=== PATIENT | male | born 1955 | race Hispanic/Latino ===

== ENCOUNTER 2019-05-30 08:49 | Emergency (ER) | payer BC, OTHER ==
[2019-05-30 10:03] LABS: Urine Blood 1+ (NEG); Urine Glucose TRACE (NEG); Urine Protein 1+ (NEG); Urine Specific Gravity 1.025 (1.005-1.030)
[2019-05-30 10:13] LABS: Urine Bacteria <20 /HPF (NONE SEEN); Urine Culture Reflex Order REFLEXED; Urine Mucus 2+ /HPF (NONE SEEN); Urine RBC <5 /HPF (NONE SEEN); Urine Urothelial Cells <5 /HPF (NONE SEEN)
--- NOTE | 2019-05-30 10:21 | RAD REPORT ---
EXAM DESCRIPTION: CT - Stone Protocol - 05/30/2019 9:45 am CLINICAL HISTORY: pain with urination COMPARISON: No comparisons TECHNIQUE: Axial 5 mm thick images were obtained without oral or IV contrast. The [id number] span s the entirety of the system including uppermost abdomen and lung bases. All CT scans are performed using dose optimization technique as appropriate and may include automated exposure control or mA/KV adjustment according to patient size. FINDINGS: No hydronephrosis is present and no obstructing ureteral calculi. Small sandlike stones co uld be occult. Minimal stranding seen in the perinephric fat. In 19 millimeter round low-density mass posterior mid right kidney is most likely a cyst but is not fully characterized. Partially filled ur inary bladder shows wall thickening and stranding in the adjacent fat. Prostate gland is prominent an d projects into the bladder base. There is a mild congested or edematous appearance to the prostate g land and seminal vesicles. No significant adrenal finding. Liver shows a fatty attenuation pattern. No focal liver lesion on noncontrast imaging. Spleen and andujar creas show no suspicious findings. Gallbladder is contracted. Stones can be occult. No biliary tree d ilatation. No suspicious bowel findings. No hernia, mass or bulky lymphadenopathy noted. No free air, free fluid or inflammatory stranding. No significant bony abnormality. IMPRESSION: No hydronephrosis and no obstructing calculus seen. Bladder shows cystitis findings and there is a questionable prostatitis pattern. Isodense masses and pyelonephritis are not excluded on stone protocol technique. A 19 millimeter low-density mass posterior mid right kidney is probably a cyst but not fully characte rized. Fatty infiltration of the liver. Gallbladder is tightly contracted.
[2019-05-30 11:48] LABS: Hematocrit 40.1 % (39.6-49.0); Lymphocytes % 23.3 % (15.3-44.8); MPV 8.1 fL (7.6-11.3); RBC Red Blood Cell Count 4.49 M/uL (4.33-5.43)
[2019-05-30 11:55] LABS: BUN Blood Urea Nitrogen 14 mg/dL (7-18); Bicarbonate 25 mmol/L (21-32); Glucose Level 111 mg/dL (74-106); Sodium Level 140 mmol/L (136-145)
--- NOTE | 2019-05-30 13:59 | ER ---
Nurse's Notes [facility] Name: Emile Rogers Age: 64 yrs Sex: Male : 1955 Arrival Date: 05/30/2019 Time: 08:53 Bed 24 Private MD: Diagnosis: Acute prostatitis;Acute cystitis Presentation: 05/29 09:11 Chief complaint: Patient states: Burning and pain to right flank with urination, jl7 started Monday, went to clinic and they gave Benzonatate and Doxycycline, "It's not working.". Coronavirus screen: The patient has NOT traveled to a country currently being monitored by the [facility] within the last 14 days. Proceed with normal triage procedures. Ebola Screen: No symptoms or risks identified at this time. Initial Sepsis Screen: Does the patient meet any 2 criteria? No. Patient's initial sepsis screen is negative. Does the patient have a suspected source of infection? No. Patient's initial sepsis screen is negative. Risk Assessment: Do you want to hurt yourself or someone else? Patient reports no desire to harm self or others. Onset of symptoms was May 26, 2019. 09:11 Method Of Arrival: Ambulatory [facility] 09:11 Acuity: ASHLY 3 jl7 Triage Assessment: 09:14 General: Appears in no apparent distress. uncomfortable, Behavior is calm, cooperative, jl7 appropriate for age. Pain: Complains of pain in Right flank and groin Pain currently is 9 out of 10 on a pain scale. Neuro: Level of Consciousness is awake, alert, obeys commands. Cardiovascular: Patient's skin is warm and dry. Respiratory: Airway is patent Respiratory effort is even, unlabored, Respiratory pattern is regular, symmetrical. : Reports burning with urination, pain in right flank(s). Derm: Skin is pink, warm \\T\\ dry. Historical: - Allergies: 09:14 No Known Allergies; jl7 - Home Meds: 09:14 None [Active]; jl7 - PMHx: 09:14 None; jl7 - PSHx: 09:14 None; jl7 - Immunization history:: Adult Immunizations not up to date. - Social history:: Smoking status: Patient reports the use of cigarette tobacco products, smokes one-half pack cigarettes per day. Screenin:20 Abuse screen: Denies threats or abuse. Denies injuries from another. Nutritional aj1 screening: No deficits noted. Tuberculosis screening: No symptoms or risk factors identified. 13:17 Fall Risk None identified. aj1 Assessment: 10:20 General: Appears in no apparent distress. uncomfortable, Behavior is calm, cooperative, aj1 appropriate for age. Pain: Complains of pain in back. Neuro: Level of Consciousness is awake, alert, obeys commands, Oriented to person, place, time, situation. Cardiovascular: Patient's skin is warm and dry. Respiratory: Airway is patent Respiratory effort is even, unlabored, Respiratory pattern is regular, symmetrical. GI: No signs and/or symptoms were reported involving the gastrointestinal system. : Reports burning with urination, urinary frequency. EENT: No signs and/or symptoms were reported regarding the EENT system. Derm: No signs and/or symptoms reported regarding the dermatologic system. Skin is pink, warm \\T\\ dry. normal. Musculoskeletal: No signs and/or symptoms reported regarding the musculoskeletal system. Circulation, motion, and sensation intact. 11:20 Reassessment: Patient appears in no apparent distress at this time. No changes from aj1 previously documented assessment. Patient and/or family updated on plan of care and expected duration. Pain level reassessed. Patient is alert, oriented x 3, equal unlabored respirations, skin warm/dry/pink. 12:20 Reassessment: Patient appears in no apparent distress at this time. No changes from aj1 previously documented assessment. Patient and/or family updated on plan of care and expected duration. Pain level reassessed. Patient is alert, oriented x 3, equal unlabored respirations, skin warm/dry/pink. 13:16 Reassessment: Patient appears in no apparent distress at this time. No changes from aj1 previously documented assessment. Patient and/or family updated on plan of care and expected duration. Pain level reassessed. Patient is alert, oriented x 3, equal unlabored respirations, skin warm/dry/pink. Vital Signs: 09:11 BP 159 / 63; Pulse 66; Resp 17 S; Temp 98.3(O); Pulse Ox 98% on R/A; Weight 83.91 kg jl7 (R); Height 5 ft. 4 in. (162.56 cm) (R); Pain 9/10; 11:46 BP 155 / 75; Pulse 52; Resp 18; Pulse Ox 95% on R/A; aj1 12:51 BP 161 / 75; Pulse 61; Resp 18; Pulse Ox 100% on R/A; aj1 09:11 Body Mass Index 31.75 (83.91 kg, 162.56 cm) 7 ED Course: 08:53 Patient arrived in ED. ag5 09:14 Triage completed. jl7 09:14 Arm band placed on right wrist. jl7 09:16 Patient placed in waiting room, Patient notified of wait time. jl7 09:50 CT Stone Protocol In Process Unspecified. EDMS 10:07 Jeffrey Echevarria FNP-C is PHCP. la1 10:07 Derrick Braswell MD is Attending Physician. la1 10:20 Patient has correct armband on for positive identification. Bed in low position. Call aj1 light in reach. Side rails up X 1. 10:20 No provider procedures requiring assistance completed. aj1 10:28 Jammie George, RN is Primary Nurse. aj1 11:35 Initial lab(s) drawn, by me, sent to lab. Inserted saline lock: 20 gauge in right aj1 antecubital area, using aseptic technique. Blood collected. 13:17 IV discontinued, intact, bleeding controlled, No redness/swelling at site. Pressure aj1 dressing applied. Administered Medications: No medications were administered Outcome: 12:49 Discharge ordered by . la1 13:17 Discharged to home ambulatory. aj1 13:17 Condition: good 13:17 Discharge instructions given to patient, Instructed on discharge instructions, follow up and referral plans. medication usage, Demonstrated understanding of instructions, follow-up care, medications, Prescriptions given X 1. 13:18 Patient left the ED. aj1 Signatures: Dispatcher [employer] EDIL Jammie George, RN RN aj1 Jeffrey Echevarria FNP-C FNP-Miguel Mistry RN RN jl7 Giorgio Jeff [facility]
--- NOTE | 2019-05-30 14:01 | EDPHYS ---
Physician Documentation [facility] Name: Emile Rogers Age: 64 yrs Sex: Male : 1955 Arrival Date: 05/30/2019 Time: 08:53 Bed 24 Private MD: ED Physician Derrick Braswell HPI: 05/29 10:19 This 64 yrs old Male presents to ER via Ambulatory with complaints of Pain la1 With Urination. 10:19 The patient presents with urinary symptoms, urinary frequency, small amounts. Onset: la1 The symptoms/episode began/occurred 5 day(s) ago. Modifying factors: The symptoms are alleviated by nothing. Associated signs and symptoms: Pertinent positives: dysuria, hematuria, Pertinent negatives: fever. Severity of symptoms: At their worst the symptoms were moderate. The patient has experienced a previous episode. pt was seen at [place] ER and placed on 10 days of doxycycline but is not getting better after four days of antibiotics. Historical: - Allergies: 09:14 No Known Allergies; jl7 - Home Meds: 09:14 None [Active]; jl7 - PMHx: 09:14 None; jl7 - PSHx: 09:14 None; jl7 - Immunization history:: Adult Immunizations not up to date. - Social history:: Smoking status: Patient reports the use of cigarette tobacco products, smokes one-half pack cigarettes per day. ROS: 10:20 Constitutional: Negative for fever, chills, and weight loss, Eyes: Negative for injury, la1 pain, redness, and discharge, Neck: Negative for injury, pain, and swelling, Cardiovascular: Negative for chest pain, palpitations, and edema, Respiratory: Negative for shortness of breath, cough, wheezing, and pleuritic chest pain, Abdomen/GI: Negative for abdominal pain, nausea, vomiting, diarrhea, and constipation, Back: Negative for injury and pain. 10:20 MS/Extremity: Negative for injury and deformity, Skin: Negative for injury, rash, and discoloration, Neuro: Negative for headache, weakness, numbness, tingling, and seizure. 10:20 : Positive for urinary symptoms, urinary frequency, small amounts, burning with urination, difficulty urinating. Exam: 10:21 Constitutional: This is a well developed, well nourished patient who is awake, alert, la1 and in no acute distress. Head/Face: Normocephalic, atraumatic. Eyes: Pupils equal round and reactive to light, extra-ocular motions intact. ENT: Nares patent. No nasal discharge, no septal abnormalities noted. Cardiovascular: Regular rate and rhythm with a normal S1 and S2. Respiratory: Lungs have equal breath sounds bilaterally, clear to auscultation Abdomen/GI: Soft, non-tender, with normal bowel sounds. No distension Back: No spinal tenderness. No costovertebral tenderness. Full range of motion. Skin: Warm, dry with normal turgor. Normal color with no rashes, no lesions, and no evidence of cellulitis. MS/ Extremity: Pulses equal, no cyanosis. Neuro: Awake and alert, GCS 15, oriented to person, place, time, and situation. Normal gait. Vital Signs: 09:11 BP 159 / 63; Pulse 66; Resp 17 S; Temp 98.3(O); Pulse Ox 98% on R/A; Weight 83.91 kg jl7 (R); Height 5 ft. 4 in. (162.56 cm) (R); Pain 9/10; 11:46 BP 155 / 75; Pulse 52; Resp 18; Pulse Ox 95% on R/A; aj1 12:51 BP 161 / 75; Pulse 61; Resp 18; Pulse Ox 100% on R/A; aj1 09:11 Body Mass Index 31.75 (83.91 kg, 162.56 cm) jl7 MDM: 10:07 Patient medically screened. la1 12:46 Differential diagnosis: nonspecific abdominal pain, UTI, urinary retention, la1 prostatitis, urethritis. Data reviewed: vital signs, nurses notes, lab test result(s), radiologic studies, and as a result, I will discharge patient. Data interpreted: Pulse oximetry: on room air is 95 %. Interpretation: normal. Counseling: I had a detailed discussion with the patient and/or guardian regarding: the historical points, exam findings, and any diagnostic results supporting the discharge/admit diagnosis, lab results, the need for outpatient follow up, a family practitioner, a urologist, to return to the emergency department if symptoms worsen or persist or if there are any questions or concerns that arise at home. Special discussion: Based on the patient's Hx, exam, and Dx evaluation, there is no indication for emergent surgery or inpatient Tx. It is understood by the patient/guardian that if the Sx's persist or worsen they need to return immediately for re-evaluation. ED course: Pt currently on doxycycline for what I assume the provider in [place] believed to be a prostatitis, since I do not believe that the pt prostatitis/cystitis is from an STI based on age and history I will prescribe the pt 14 days of bactrim and have him FU with PCP and urology, pt verbalizes understanding, strict return precautions given. 05/29 09:35 Order name: Urine Dipstick--Ancillary (enter results); Complete Time: 10:07 dm5 05/29 09:35 Order name: Urine Microscopic Only; Complete Time: 10:17 dm5 05/29 09:35 Order name: CT Stone Protocol; Complete Time: 11:52 dm5 05/29 10:15 Order name: Urine Culture EDNJ 05/29 10:17 Order name: CBC with Diff; Complete Time: 12:39 la1 05/29 10:17 Order name: BMP; Complete Time: 12:39 la1 05/29 10:17 Order name: IV; Complete Time: 11:42 la1 Administered Medications: No medications were administered Disposition: 17:20 Co-signature as Attending Physician, Derrick Braswell MD I agree with the assessment and kdr plan of care. Disposition: 05/30/19 12:49 Discharged to Home. Impression: Acute prostatitis, Acute cystitis. - Condition is Stable. - Discharge Instructions: Prostatitis, Urinary Tract Infection, Adult, Prostatitis, Cyab-yv-Kyli. - Prescriptions for Bactrim DS 800- 160 mg Oral Tablet - take 1 tablet by ORAL route every 12 hours for 14 days; 28 tablet. - Work release form, Medication Reconciliation Form, Thank You Letter form. - Follow up: Private Physician; When: 2 - 3 days; Reason: Further diagnostic work-up, Recheck today's complaints, Re-evaluation by your physician. Follow up: Emergency Department; When: As needed; Reason: Fever > 102 F, Worsening of condition. - Problem is new. - Symptoms have improved. Signatures: Dispatcher [facility] Jammie George RN RN aj1 Derrick Braswell MD MD kdr Attema, Lee, CREATIVE INTERN-C CREATIVE INTERN-Cla1 Miguel Alvarado, RN RN jl7 Corrections: (The following items were deleted from the chart) 13:18 12:49 05/30/2019 12:49 Discharged to Home. Impression: Acute prostatitis; Acute aj1 cystitis. Condition is Stable. Forms are Medication Reconciliation Form, Thank You Letter, Antibiotic Education, Prescription Opioid Use. Follow up: Private Physician; When: 2 - 3 days; Reason: Further diagnostic work-up, Recheck today's complaints, Re-evaluation by your physician. Follow up: Emergency Department; When: As needed; Reason: Fever > 102 F, Worsening of condition. Problem is new. Symptoms have improved. la1
[2019-05-30 14:29] VITALS: TEMP 98.3
[2019-05-30 14:33] VITALS: BP 161/75; O2SAT 100
== END 2019-05-30 13:18 | disposition home or self-care (01) ==
LOC: ER 08:49
DX: N30.00 Acute cystitis without hematuria (principal); N41.0 Acute prostatitis; F17.210 Nicotine dependence, cigarettes, uncomplicated
CPT/HCPCS: 36415; 74176; 76377; 80048; 81003; 81015; 85025; 87086; 87088; 99284

== ENCOUNTER 2020-07-08 17:25 | Inpatient (IN) | payer BC ==
--- OUTSIDE RECORDS SUMMARY | 2020-07-08 17:28 | XMS REPORT | Continuity of Care Document ---
:1955 Author Organization [facility] t Address [address] [place] [address] [address] [place] [address] Care Team Providers Name Role Phone Patricia Gore Attending Clinician Problems This patient has no known problems. Allergies, Adverse Reactions, Alerts This patient has no known allergies or adverse reactions. Medications This patient has no known medications. Procedures This patient has no known procedures. Encounters Start End Encounter Admission Attending Care Care Encounter Source Date/Time Date/Time Type Type Clinicians Facility Department ID 2019-05-26 2019-05-26 Emergency Patricia Olivares [facility] [place] [id number] 18:28:14 21:14:00 Anny Pereira [id number] [place] [id number] [place] [id number] Results This patient has no known results.
[2020-07-08 18:28] LABS: Absolute Lymphocytes (CBC) 3.1 K/uL (0.7-4.9); Lymphocytes % 34.6 % (15.3-44.8); RBC Red Blood Cell Count 4.51 M/uL (4.33-5.43)
--- NOTE | 2020-07-08 18:39 | RAD REPORT ---
EXAM DESCRIPTION: CT - Ct Stroke Brain Wo Cont - 07/08/2020 6:25 pm CLINICAL HISTORY: right lower facial weakness x 3 days COMPARISON: No comparisons TECHNIQUE: Axial 5 millimeter thick images of the head were obtained without IV contrast. All CT scans are performed using dose optimization technique as appropriate and may include automated exposure control or mA/KV adjustment according to patient size. FINDINGS: No intracranial hemorrhage, mass, or cerebral edema. No acute cortical based infarction. N o cortical edema or sulcal effacement. No extra-axial fluid collections. Ugarte matter-white matter di fferentiation is preserved.Diminished attenuation is seen in the posterior left basal ganglia and pos terior limb internal capsule. This extends into the deep periventricular white matter posterior left frontal lobe. In a patient with right-sided symptoms, subacute nonhemorrhagic CVA is suspected. Patient has no significant atrophy or chronic ischemic change identifiable. Ventricles are normal. Ar terial calcifications are present. Mastoid air cells are clear. Patchy ethmoid mucosal thickening is present. No globe or orbital conten t abnormality seen. Findings telephoned to doctor Eloisa [id number] hours IMPRESSION: Suspected subacute nonhemorrhagic infarction in the posterior left basal ganglia and pos terior limb internal capsule region. No hemorrhage, mass or other acute intracranial finding.
[2020-07-08 18:44] LABS: BUN Blood Urea Nitrogen 16 mg/dL (7-18); Bicarbonate 26 mmol/L (21-32); Glucose Level 103 mg/dL (74-106); Sodium Level 140 mmol/L (136-145)
[2020-07-08 18:45] LABS: Protime INR 0.97
--- NOTE | 2020-07-08 18:50 | ER ---
Nurse's Notes [facility] Name: Emile Rogers Age: 65 yrs Sex: Male : 1955 Arrival Date: 07/08/2020 Time: 17:39 Bed 20 Private MD: Diagnosis: Cerebral infarction;Slurred speech;Weakness Presentation: 07/08 17:40 Chief complaint: EMS states: patient woke up Monday experiencing slurred speech. ap3 Patient worked Monday, Monday and today. [facility] co-workers noticed a slight slur in speech today, and had [facility] EMS called. Patient denies pain, headache or weakness. Coronavirus screen: Client denies travel out of the [place] in the last 14 days. Ebola Screen: No symptoms or risks identified at this time. Initial Sepsis Screen: Does the patient meet any 2 criteria? No. Patient's initial sepsis screen is negative. Does the patient have a suspected source of infection? No. Patient's initial sepsis screen is negative. Risk Assessment: Do you want to hurt yourself or someone else? Patient reports no desire to harm self or others. Onset of symptoms was July 05, 2020. 17:40 [facility] 17:40 Acuity: ASHLY 3 ap3 Triage Assessment: 17:50 General: Appears in no apparent distress. Behavior is calm, cooperative. Pain: Denies ap3 pain. EENT: Reports numbness in the right side of tongue.. Neuro: Level of Consciousness is awake, alert, obeys commands, Oriented to person, place, time, situation, Computer Numerical Control Machinist are equal bilaterally Moves all extremities. Gait is steady, Speech slightly slurred. . Historical: - Allergies: 17:50 No Known Allergies; ap3 - Home Meds: 17:50 None [Active]; ap3 - PMHx: 17:50 None; ap3 - PSHx: 17:50 None; ap3 - Social history:: Smoking status: Patient reports the use of cigarette tobacco products, approx 5 cigarettes a day. - Family history:: not pertinent. - Hospitalizations: : No recent hospitalization is reported. Screenin:52 Abuse screen: Denies threats or abuse. Nutritional screening: No deficits noted. ap3 Tuberculosis screening: No symptoms or risk factors identified. VAN Screening: Arm Drift: Patient shows no arm weakness. Patient is VAN negative. Fall Risk No fall in past 12 months (0 pts). No secondary diagnosis (0 pts). IV access (20 points). Ambulatory Aid- None/Bed Rest/Nurse Assist (0 pts). Gait- Normal/Bed Rest/Wheelchair (0 pts) Mental Status- Oriented to own ability (0 pts). Total Shay Fall Scale indicates No Risk (0-24 pts). 18:42 Patient has been NPO before screening. The patient is alert, able to follow commands. ap3 The patient exhibits slurred or garbled speech. The patient is not exhibiting difficulty speaking. The patient does not exhibit difficulty understanding words. The patient is able to swallow own secretions with no drooling or need for suction. Patient tolerated one teaspoon of water. No drooling, immediate coughing, gurgling, or clearing of the throat was noted. The patient tolerated 90mL of water. No drooling, immediate coughing, gurgling, or clearing of the throat was noted. The patient passed the bedside swallow screening. Oral medications may be given as ordered. Contact Physician for further diet orders. Assessment: 18:23 General: Appears in no apparent distress. comfortable, Behavior is calm, cooperative, ap3 appropriate for age. Pain: Denies pain. Neuro: Level of Consciousness is awake, alert, obeys commands, Oriented to person, place, time, situation, Computer Numerical Control Machinist are equal bilaterally Moves all extremities. Gait is steady, Speech slightly slurred . Facial droop on right, Facial symmetry: tongue is midline. Cardiovascular: Denies Capillary refill < 3 seconds Patient's skin is warm and dry. Chest pain is denied. Respiratory: Airway is patent Respiratory effort is even, unlabored, Respiratory pattern is regular, symmetrical. GI: No signs and/or symptoms were reported involving the gastrointestinal system. : No signs and/or symptoms were reported regarding the genitourinary system. EENT: Denies difficulty swallowing. Derm: No signs and/or symptoms reported regarding the dermatologic system. Musculoskeletal: No signs and/or symptoms reported regarding the musculoskeletal system. 19:00 Reassessment: Patient and/or family updated on plan of care and expected duration. Pain ea level reassessed. Patient is alert, oriented x 3, equal unlabored respirations, skin warm/dry/pink. Vital Signs: 17:40 BP 201 / 80; Pulse 64; Resp 64; Pulse Ox 97% on R/A; Weight 81.65 kg; Height 5 ft. 5 ap3 in. (165.10 cm); Pain 0/10; 17:50 BP 201 / 80; Pulse 62; Pulse Ox 97% on R/A; Pain 0/10; ap3 18:25 BP 194 / 78; Temp 98.4(O); ap3 19:18 BP 178 / 78; Pulse 57; Pulse Ox 96% on R/A; Pain 0/10; ap3 17:40 Body Mass Index 29.95 (81.65 kg, 165.10 cm) ap3 NIH Stroke Scale Scores: 17:52 NIHSS Score: 1 ap3 ED Course: 17:39 Patient arrived in ED. jd3 17:40 Lesley Rao, RN is Primary Nurse. ap3 17:49 Triage completed. ap3 17:56 Harrison Amin MD is Attending Physician. rn 18:04 Maintain EMS IV. Dressing intact. Site clean \T\ dry. Gauge \T\ site: 20g to the right ap 3 wrist. 18:04 Arm band placed on right wrist. ap3 18:04 Patient has correct armband on for positive identification. Placed in gown. Bed in low ap3 position. Call light in reach. Side rails up X2. Adult w/ patient. tip stitcher on. Pulse ox on. NIBP on. Door closed. Warm blanket given. 18:25 CT Stroke Brain w/o Contrast In Process Unspecified. EDMS 18:37 Stroke CXR 1 View In Process Unspecified. EDMS 18:49 Roly Zacarias is Hospitalizing Provider. rn 19:12 Primary Nurse role handed off by Lesley Rao, YESSICA mw2 19:17 Lesley Rao, RN is Primary Nurse. ap3 23:03 No provider procedures requiring assistance completed. Patient admitted, IV remains in ea place. Administered Medications: 18:59 Drug: foLIC Acid 1 mg {Note: medication placed in 100mls NS.} Route: IVPB; Site: right ap3 antecubital; 19:19 Follow up: Response: No adverse reaction; IV Status: Completed infusion; IV Intake: ap3 100ml 19:00 Drug: Aspirin Chewable Tablet 324 mg Route: PO; ap3 19:20 Follow up: Response: No adverse reaction ap3 Intake: 19:19 IV: 100ml; Total: 100ml. ap3 Outcome: 18:49 Decision to Hospitalize by Provider. rn 23:03 Admitted to ER Hold. Please see [facility] for further documentation. binh 23:03 Condition: stable 23:03 Instructed on the need for admit, Demonstrated understanding of instructions. 07/09 03:45 Patient left the ED. NIH Stroke Scale - NIH Stroke Score Date: 07/08/2020 Time: 17:52 Total Score = 1 1a. Level of Consciousness (LOC) - 0(Alert) 1b. Level of Consciousness (LOC) (Year \T\ Age) - 0(Both) 1c. LOC Commands (Open \T\ Closes Eyes/Seed Collector) - 0(Both) 2. Best Gaze (Lateral Gaze Paresis) - 0(Normal) 3. Visual Field Loss - 0(No visual loss) 4. Facial Palsy - 1(Minor Paralysis) 5a. Left Arm: Motor (10-second hold) - 0(No drift) 5b. Right Arm: Motor (10-second hold) - 0(No drift) 6a. Left Leg: Motor (5-second hold - always test supine) - 0(No drift) 6b. Right Leg: Motor (5-second hold - always test supine) - 0(No drift) 7. Limb Ataxia (finger/nose \T\ heel/peñaloza - test with eyes open) - 0(Absent) 8. Sensory Loss (pinprick arms/legs/face) - 0(Normal) 9. Best Language: Aphasia (description/naming/reading) - 0(No aphasia) 10. Dysarthria (speech clarity - read or repeat words) - 0(Normal) 11. Extinction and Inattention (visual/tactile/auditory/spatial/personal) - 0(No abnormality) Initials: ap3 Signatures: Dispatcher [employer] EDMS Harrison Amin MD MD rn Antunez, Elena, RN RN ea Davies, Jonathon, RN RN jd3 Prokisch, Amanda, RN RN ap3 Dariusz Carcamo mw2 Corrections: (The following items were deleted from the chart) 07/08 18:26 18:25 BP 194 / 78; ap3 ap3
--- NOTE | 2020-07-08 18:50 | EDPHYS ---
Physician Documentation [facility] Name: mEile Rogers Age: 65 yrs Sex: Male : 1955 Arrival Date: 07/08/2020 Time: 17:39 Bed 20 Private MD: ED Physician Harrison Amin HPI: 07/08 18:31 This 65 yrs old Male presents to ER via EMS with complaints of slurred speech, rn facial weakness. 18:33 The patient presents to the emergency department with weakness of the right side of the rn face, a speech or higher order brain function problem. Onset: The symptoms/episode began/occurred 3 day(s) ago. Context: occurred at home, occurred while the patient was getting up from bed. Severity of symptoms: At their worst the symptoms were moderate in the emergency department the symptoms have improved. Current symptoms: dysphasia. The patient has not experienced similar symptoms in the past. The patient has not recently seen a physician. and patient report slurred speech and right facial weakness since Monday. No fever. No head injury. Reports feels like getting a little better. . Historical: - Allergies: 17:50 No Known Allergies; ap3 - Home Meds: 17:50 None [Active]; ap3 - PMHx: 17:50 None; ap3 - PSHx: 17:50 None; ap3 - Social history:: Smoking status: Patient reports the use of cigarette tobacco products, approx 5 cigarettes a day. - Family history:: not pertinent. - Hospitalizations: : No recent hospitalization is reported. ROS: 18:42 Constitutional: Negative for fever, chills, and weight loss, Eyes: Negative for injury, rn pain, redness, and discharge, Neck: Negative for injury, pain, and swelling, Cardiovascular: Negative for chest pain, palpitations, and edema, Respiratory: Negative for shortness of breath, cough, wheezing, and pleuritic chest pain, Abdomen/GI: Negative for abdominal pain, nausea, vomiting, diarrhea, and constipation, Back: Negative for injury and pain, MS/Extremity: Negative for injury and deformity, Skin: Negative for injury, rash, and discoloration, Neuro: negative for headache, + facial weakness and slurred speech Exam: 18:42 Constitutional: This is a well developed, well nourished patient who is awake, alert, rn and in no acute distress. Head/Face: Normocephalic, atraumatic. Eyes: Pupils equal round and reactive to light, extra-ocular motions intact. Lids and lashes normal. Conjunctiva and sclera are non-icteric and not injected. Cornea within normal limits. Periorbital areas with no swelling, redness, or edema. Neck: Trachea midline, no thyromegaly or masses palpated, and no cervical lymphadenopathy. Supple, full range of motion without nuchal rigidity, or vertebral point tenderness. No Meningismus. Cardiovascular: Regular rate and rhythm. No pulse deficits. Respiratory: No increased work of breathing, no retractions or nasal flaring. Abdomen/GI: soft, non-tender Skin: Warm, dry MS/ Extremity: Pulses equal, no cyanosis. Neurovascular intact. Full, normal range of motion. Equal circumference. Neuro: Awake and alert, GCS 15, oriented to person, place, time, and situation. + right lower facial weakness with forehead sparing. Motor strength 5/5 in all extremities. Sensory grossly intact. Cerebellar exam normal. Vital Signs: 17:40 BP 201 / 80; Pulse 64; Resp 64; Pulse Ox 97% on R/A; Weight 81.65 kg; Height 5 ft. 5 ap3 in. (165.10 cm); Pain 0/10; 17:50 BP 201 / 80; Pulse 62; Pulse Ox 97% on R/A; Pain 0/10; ap3 18:25 BP 194 / 78; Temp 98.4(O); ap3 19:18 BP 178 / 78; Pulse 57; Pulse Ox 96% on R/A; Pain 0/10; ap3 17:40 Body Mass Index 29.95 (81.65 kg, 165.10 cm) ap3 NIH Stroke Scale Scores: 17:52 NIHSS Score: 1 ap3 MDM: 17:56 Patient medically screened. rn 18:39 ED course: + subacute left basal ganglia/thalamic infarct, per Dr. Angel. Will give rn aspirin/folic acid, and admit for stroke w/u. . 18:42 Data reviewed: vital signs, nurses notes, EKG, radiologic studies, and as a result, I rn will admit patient. Counseling: I had a detailed discussion with the patient and/or guardian regarding: the historical points, exam findings, and any diagnostic results supporting the discharge/admit diagnosis, lab results, radiology results, the need for further work-up and treatment in the hospital. Response to treatment: There is no appreciated change of the patient's symptoms at this time, and as a result, I will admit patient. Admission orders: after a detailed discussion of the patient's condition and case, the admit orders are written by me. 18:57 ED course: Pt with LVH, signs of diffuse twave inversions and mild depressions rn throughout, no ST elevation noted, trop 0.10, pt denies chest pain/sob/arm pain. SPoke with hospitalist, they are sending image of ECG to Dr. Vyas for further recs. Aspirin already given for CVA. Will hold plavix for now given likely triple vessel disease unless Dr. Vyas recommends. . 07/08 18:05 Order name: Troponin (emerg Dept Use Only) rn 07/08 18:05 Order name: Basic Metabolic Panel rn 07/08 18:05 Order name: CBC with Diff; Complete Time: 18:50 rn 07/08 18:05 Order name: Protime (+inr); Complete Time: 19:02 rn 07/08 18:05 Order name: Ptt, Activated; Complete Time: 19:02 rn 07/08 18:06 Order name: Troponin (Emerg Dept Use Only); Complete Time: 18:50 EDMS 07/08 18:06 Order name: Basic Metabolic Panel; Complete Time: 18:50 EDMS 07/08 18:50 Order name: Glucose, Ancillary Testing; Complete Time: 19:02 EDMS 07/08 19:22 Order name: COVID-19 : Document "Date of Symptom Onset" if Symptomatic. mw2 07/08 20:41 Order name: SARS-COV-2 RT PCR; Complete Time: 21:39 EDMS 07/08 23:36 Order name: Troponin I; Complete Time: 07:00 EDMS 07/08 23:36 Order name: NT PRO-BNP; Complete Time: 07:00 EDMS 07/08 23:36 Order name: T4 Free; Complete Time: 07:00 EDMS 07/08 18:05 Order name: CT Stroke Brain w/o Contrast; Complete Time: 18:50 rn 07/08 18:05 Order name: Stroke CXR 1 View; Complete Time: 21:39 rn 07/08 18:05 Order name: EKG; Complete Time: 18:07 rn 07/08 18:05 Order name: Accucheck; Complete Time: 18:39 rn 07/08 18:05 Order name: Cardiac monitoring; Complete Time: 18:10 rn 07/08 18:05 Order name: EKG - Nurse/Tech; Complete Time: 18:41 rn 07/08 18:05 Order name: IV Saline Lock; Complete Time: 18:10 rn 07/08 18:05 Order name: Labs collected and sent; Complete Time: 18:21 rn 07/08 18:05 Order name: NPO; Complete Time: 18:09 rn 07/08 18:05 Order name: O2 Per Protocol; Complete Time: 18:09 rn 07/08 18:05 Order name: O2 Sat Monitoring; Complete Time: 18:09 rn 07/08 18:05 Order name: Stroke Swallow Screen; Complete Time: 18:42 rn 07/08 20:57 Order name: CONS Physician Consult EDMS 07/08 23:36 Order name: Thyroid Stimulating Hormone; Complete Time: 07:00 EDMS Administered Medications: 18:59 Drug: foLIC Acid 1 mg {Note: medication placed in 100mls NS.} Route: IVPB; Site: right ap3 antecubital; 19:19 Follow up: Response: No adverse reaction; IV Status: Completed infusion; IV Intake: ap3 100ml 19:00 Drug: Aspirin Chewable Tablet 324 mg Route: PO; ap3 19:20 Follow up: Response: No adverse reaction ap3 Disposition: 07/08/20 18:49 Hospitalization ordered by Roly Zacarias for Inpatient Admission. Preliminary diagnosis are Cerebral infarction, Slurred speech, Weakness. - Bed requested for Telemetry/MedSurg (Inpatient). - Status is Inpatient Admission. ea - Condition is Stable. - Problem is new. - Symptoms are unchanged. NIH Stroke Scale - NIH Stroke Score Date: 07/08/2020 Time: 17:52 Total Score = 1 1a. Level of Consciousness (LOC) - 0(Alert) 1b. Level of Consciousness (LOC) (Year \\T\\ Age) - 0(Both) 1c. LOC Commands (Open \\T\\ Closes Eyes/High School Art Teacher) - 0(Both) 2. Best Gaze (Lateral Gaze Paresis) - 0(Normal) 3. Visual Field Loss - 0(No visual loss) 4. Facial Palsy - 1(Minor Paralysis) 5a. Left Arm: Motor (10-second hold) - 0(No drift) 5b. Right Arm: Motor (10-second hold) - 0(No drift) 6a. Left Leg: Motor (5-second hold - always test supine) - 0(No drift) 6b. Right Leg: Motor (5-second hold - always test supine) - 0(No drift) 7. Limb Ataxia (finger/nose \\T\\ heel/peñaloza - test with eyes open) - 0(Absent) 8. Sensory Loss (pinprick arms/legs/face) - 0(Normal) 9. Best Language: Aphasia (description/naming/reading) - 0(No aphasia) 10. Dysarthria (speech clarity - read or repeat words) - 0(Normal) 11. Extinction and Inattention (visual/tactile/auditory/spatial/personal) - 0(No abnormality) Initials: ap3 Signatures: Dispatcher [employer] [facility] Alfonso Cabezas MD MD cha Nieto, Roman, MD MD rn Lasagna, Tonya, RN RN tl1 Gracie Torres RN RN ea Prokisch, Amanda RN RN ap3 Corrections: (The following items were deleted from the chart) 19:59 19:23 CORONAVIRUS ordered. [facility] 21:04 18:49 Hospitalization Ordered by Roly Zacarias for Inpatient Admission. tl1 Preliminary diagnosis is Cerebral infarction; Slurred speech; Weakness. Bed requested for Telemetry/MedSurg (Inpatient). Status is Inpatient Admission. Condition is Stable. Problem is new. Symptoms are unchanged. rn 07/09 03:16 07/08 21:04 07/08/2020 18:49 Hospitalization Ordered by Roly Zacarias for tl1 Inpatient Admission. Preliminary diagnosis is Cerebral infarction; Slurred speech; Weakness. Bed requested for [facility] ER HOLD. Status is Inpatient Admission. Condition is Stable. Problem is new. Symptoms are unchanged. tl1 07/09 03:45 03:16 07/08/2020 18:49 Hospitalization Ordered by Roly Zacarias for Inpatient ea Admission. Preliminary diagnosis is Cerebral infarction; Slurred speech; Weakness. Bed requested for Telemetry/MedSurg (Inpatient). Status is Inpatient Admission. Condition is Stable. Problem is new. Symptoms are unchanged. tl1
[2020-07-08] MEDS ORDERED: ASPIRIN 81 MG CHEWABLE TABLET ONE (19:05)
[2020-07-08] MEDS ORDERED: FOLIC ACID 5 MG/ML VIAL ONE (19:09)
[2020-07-08] MEDS ORDERED: NA CHLORIDE 0.9% 100 ML ONE (19:10)
--- NOTE | 2020-07-08 19:29 | RAD REPORT ---
EXAM DESCRIPTION: RAD - Chest Single View - 07/08/2020 6:37 pm CLINICAL HISTORY: Facial weakness, slurred speech COMPARISON: None TECHNIQUE: AP portable chest image was obtained 07/08/2020 6:37 pm . FINDINGS: Lungs are clear. Heart and vasculature are normal. No measurable pleural effusion and no p neumothorax. No acute bony abnormality seen. No acute aortic findings suspected. IMPRESSION: No acute cardiopulmonary process.
[2020-07-08] MEDS ORDERED: ONDANSETRON 4 MG/2 ML VIAL IV PRN (21:56)
[2020-07-08] MEDS ORDERED: HYDRALAZINE HCL 20 MG/ML VIAL IV PRN ×2 (21:56→23:16)
[2020-07-08] MEDS ORDERED: ACETAMINOPHEN 500 MG TAB PO PRN (21:56)
--- NOTE | 2020-07-08 22:49 | P.HP ---
Certification for Inpatient Patient admitted to: Observation With expected LOS: <2 Midnights Patient will require the following post-hospital care: None Practitioner: I am a practitioner with admitting privileges, knowledge of patient current condition, hospital course, and medical plan of care. Services: Services provided to patient in accordance with Admission requirements found in Title 42 Section 412.3 of the Code of Federal Regulations <Bashir George - Last Filed: 07/08/20 22:42> Patient History Date of Service: 07/08/20 Reason for admission: slurred speech, facial droop History of Present Illness: Mr. Rogers is a 65 yo male here today due to onset of slurred speech and right sided facial droop beginning on Monday. He went to work the past few days and has been carrying out his normal ADLs and IADLs. He denies all other motor and sensory deficits, gait abnormalities, weakness, vision changes headache, lightheadedness, nausea, and vomiting. He smokes 1/2ppd. CT Head showed suspected subacute nonhemorrhagic infarction in the posterior left basal ganglia and posterior limb internal capsule regions. No hemorrhage, mass or other acute intracranial finding. Initial troponin 0.1. EKG with LVH. Hypertensive to SBP of 180s. Denies chest pain, SOB. - Past Medical/Surgical History Has patient received pneumonia vaccine in the past: No Diabetic: No Past Medical History: Patient denies medical history Past Surgical History: Patient denies surgical history - Family History Brother -: Heart disease Notes: [place] Mother -: Cancer - Social History Smoking Status: Current every day smoker Counseled patient to stop smoking for: less than 10 minutes Smoking therapy provided: Yes Patient receptive to therapy: No Alcohol use: No CD- Drugs: No Caffeine use: Yes Place of Residence: Home <ArielBashir S - Last Filed: 07/08/20 22:42> Date of Service: 07/09/20 <ilia olmedo - Last Filed: 07/09/20 13:35> Allergies No Known Allergies Allergy (Verified 07/08/20 22:59) Home Medications: NK [No Home Meds] 07/08/20 Review of Systems General: Unremarkable Eyes: Unremarkable ENT: Unremarkable Respiratory: Unremarkable Cardiovascular: Unremarkable Gastrointestinal: Unremarkable Genitourinary: Unremarkable Musculoskeletal: Unremarkable Integumentary: Unremarkable Neurological: Weakness, Change in Speech, Other (Right lower facial weakness, slurred speech), As per HPI Lymphatics: Unremarkable <Bashir George - Last Filed: 07/08/20 22:42> Physical Examination - Physical Exam General: Alert, In no apparent distress, Oriented x3, Cooperative HEENT: Atraumatic, Normocephalic, PERRLA, Mucous membr. moist/pink, EOMI, Sclerae nonicteric Neck: Supple, 2+ carotid pulse no bruit, JVD not distended, No Thyromegaly, No LAD Respiratory: Diminished, Expiratory wheezes Cardiovascular: No edema, Normal pulses, Regular rate/rhythm, Normal S1 S2, No gallops, No rubs, No murmurs Capillary refill: <2 Seconds Gastrointestinal: Normal bowel sounds, Soft and benign, Non-distended, No ascites, No tenderness, No masses, No rebound, No guarding Musculoskeletal: No clubbing, No swelling, No contractures, No erythema, No tenderness, No warmth Integumentary: No rashes, No breakdown, No significant lesion, No tenderness/swelling, No erythema, No warmth, No cyanosis Neurological: Normal strength at 5/5 x4 extr, Normal tone, Sensation intact, Cranial nerves 3-12 intact, Normal affect, Abnormal speech Lymphatics: No axilla or inguinal lymphadenopathy - Studies Laboratory Data (last 24 hrs) 07/08/20 18:17: PT 11.1, INR 0.97, APTT 32.5 07/08/20 18:17: WBC 9.00, Hgb 13.4 L, Hct 40.0, Plt Count 301 07/08/20 18:17: Sodium 140, Potassium 4.0, BUN 16, Creatinine 0.80, Glucose 103 <Bashir George - Last Filed: 07/08/20 22:42> - Studies Laboratory Data (last 24 hrs) 07/08/20 18:17: PT 11.1, INR 0.97, APTT 32.5 07/08/20 18:17: WBC 9.00, Hgb 13.4 L, Hct 40.0, Plt Count 301 07/08/20 18:17: Sodium 140, Potassium 4.0, BUN 16, Creatinine 0.80, Glucose 103 <ilia olmedo - Last Filed: 07/09/20 13:35> Assessment and Plan - Problems (Diagnosis) (1) Slurred speech Current Visit: Yes Status: Acute (2) Facial weakness Current Visit: Yes Status: Acute (3) Hypertension Current Visit: Yes Status: Acute Qualifiers: Hypertension type: essential hypertension Qualified Code(s): I10 - Essential (primary) hypertension (4) Elevated troponin Current Visit: Yes Status: Acute (5) Abnormal EKG Current Visit: Yes Status: Acute - Plan Neurology consulted, Cardiology consulted MRI stroke protocol in the AM, ECHO in the AM daily ASA and folic acid, atorvastatin 40mg lipid panel, TSH/T4, A1c pending hydralazine IV q6hr for BP trend troponins and EKG Discharge Plan: Home Plan to discharge in: 24 Hours - Advance Directives Does patient have a Living Will: No Does patient have a Durable POA for Healthcare: No - Code Status/Comfort Care Code Status Assessed: Yes (full code) Critical Care: No Time Spent Managing Pts Care (In Minutes): 70 <Bashir George - Last Filed: 07/08/20 22:42> Physician Review: Patient Assessed, Agree with Above Assessment and Plan Physician Review Additional Text: Acute CVA. Elevated troponin. Plan: Aspirin Lipitor Check MRI of the brain MRA of the head and neck Neurology consult Echocardiogram Neurochecks Cardiology evaluation given elevated troponin. <ilia olmedo - Last Filed: 07/09/20 13:35>
[2020-07-08] MEDS: ENOXAPARIN 40 MG/0.4 ML SQ SCH (22:59)
[2020-07-08] MEDS: ATORVASTATIN 20 MG TAB PO SCH (22:59)
[2020-07-08] MEDS ORDERED: ATORVASTATIN 20 MG TAB ONE (23:09)
[2020-07-08] MEDS ORDERED: ENOXAPARIN 40 MG/0.4 ML SQ ONE (23:10)
[2020-07-08 23:36] LABS: Thyroid Stimulating Hormone 2.88 uIU/mL (0.360-3.740); Troponin I 0.09 ng/mL (0.0-0.045)
[2020-07-09 00:14] VITALS: BMI 29.9
[2020-07-09 06:37] LABS: Basophils % 1.4 % (0-1.3); Hematocrit 40.5 % (39.6-49.0); Lymphocytes % 36.6 % (15.3-44.8); MPV 8.3 fL (7.6-11.3); RBC Red Blood Cell Count 4.59 M/uL (4.33-5.43)
[2020-07-09 06:53] LABS: ALT/SGPT 30 U/L (12-78); AST/SGOT 14 U/L (15-37); Albumin 3.4 g/dL (3.4-5.0); Alkaline Phosphatase 74 U/L (45-117); BUN Blood Urea Nitrogen 13 mg/dL (7-18); Bicarbonate 25 mmol/L (21-32); Bilirubin Total 0.3 mg/dL (0.2-1.0); Glucose Level 109 mg/dL (74-106); HDL Cholesterol 30 mg/dL (40-60); LDL Cholesterol, Calculated 175 (<130); Magnesium 2.3 mg/dL (1.8-2.4); Phosphorus 3.1 mg/dL (2.5-4.9); Protein, Total 7.1 g/dL (6.4-8.2); Sodium Level 140 mmol/L (136-145)
--- NOTE | 2020-07-09 08:51 | RAD REPORT ---
EXAM DESCRIPTION: MRI - MRA Neck W/Wo Cont - 07/09/2020 8:28 am CLINICAL HISTORY: Abnormal CT study, subacute infarction, slurred speech COMPARISON: MRI brain same date, MRA head same , CT head July 08 TECHNIQUE: MR angiography of the cervical vasculature performed. Coronal imaging plane acquisition u tilized. A MultiHance contrast volume was utilized. Coronal reformatted images were generated and re viewed. Vertical axis 3D rotational projections obtained using maximum intensity projection protocol. FINDINGS: Aortic arch is 3 vessel configuration with no origins stenosis. No stenosis of the origin of either vertebral artery. Vertebral arteries are codominant with no dissection, stenosis or suspici ous finding. There is tortuosity of the vertebrobasilar vasculature but no focal abnormalities. Bilat eral common carotid and internal carotid arteries show no dissection, stenosis or suspicious findings . IMPRESSION: MRA neck examination shows no significant or suspicious finding.
[2020-07-09] MEDS ORDERED: ASPIRIN EC 81 MG TAB PO SCH (09:00)
--- NOTE | 2020-07-09 09:02 | RAD REPORT ---
EXAM DESCRIPTION: MRI - Brain W/Wo Cont - 07/09/2020 8:28 am CLINICAL HISTORY: SUBACUTE INFART ON CT, slurred speech COMPARISON: MRA Head Wo Cont dated 07/09/2020, CT head July 08 TECHNIQUE: Sagittal and axial T1-weighted images were obtained. Axial PD/heavily T2-weighted and T2- FLAIR images were obtained along with axial DWI/ADC mapping sequences. Coronal heavily T2 weighted s equence obtained. Axial and coronal post-contrast T1-weighted images were also obtained. A 18 ml Mul tihance contrast following utilized. FINDINGS: No intracranial hemorrhage is present. Diffusion-weighted imaging shows a 10 millimeter ov al focus of restricted diffusion in the globus pallidus of the lentiform nucleus also involving a por tion of the posterior limb internal capsule. This is the correlate to the CT finding. Signal abnormal ity extends superiorly towards the deep periventricular white matter posterior left frontal lobe. The re is corresponding diminished signal on ADC mapping and hyperintense T2/IR signal. Patient has trace amounts of hyperintense T2/IR signal scattered in the cerebral white matter most li oliver chronic ischemic change. No significant atrophy changes are present. Ventricles are normal. Ther e is no edema or shift of midline structures. No extra-axial fluid collections. Ugarte-matter/white mat ter junction is preserved. Signal voids are seen as a normal finding in the major intracranial vesse ls. No abnormal enhancement seen at the infarction site. Elsewhere no suspicious dura or brain parenchyma l enhancement. Mastoid air cells and paranasal sinuses are clear. IMPRESSION: Nonhemorrhagic subacute infarction in the globus pallidus of the lentiform nucleus with partial involvement of the posterior limb internal capsule and extension into the deep periventricula r white matter of the left frontal lobe. Subacute infarction changes seen on this study are the correlate to the CT abnormality. Trace amount of chronic ischemic change elsewhere in the cerebral hemispheres.
--- NOTE | 2020-07-09 09:15 | RAD REPORT ---
EXAM DESCRIPTION: MRI - MRA Head Wo Cont - 07/09/2020 8:27 am CLINICAL HISTORY: Slurred speech, subacute infarction on CT imaging COMPARISON: CT head July 08, MRI brain July 09 TECHNIQUE: Axial and coronal 3D [id number] image acquisition was performed. 3D rotational images were generated with source and reconstruction images reviewed. Horizontal and vertical axis rotation al views generated using MIP protocol. FINDINGS: Major venous sinuses are patent. No aneurysm or vascular malformation identified. The left P1 [employer] segment is absent as a normal variant. Patient has a large left posterior communicating arter y supplying the left [employer] circulation. Tortuosity of the vertebrobasilar vasculature present without d issection or stenosis. From skullbase determination the internal carotid arteries show no significant disease. No significant disease seen in the anterior, middle or posterior cerebral artery distributi ons. The small perforating vessels supplying the area of infarction are below MRA resolution. IMPRESSION: As detailed above, MRA head examination shows no significant finding.
[2020-07-09] MEDS: ASPIRIN EC 81 MG TAB PO SCH (09:35)
[2020-07-09] MEDS: FOLIC ACID 1 MG TABLET PO SCH (09:35)
[2020-07-09] MEDS ORDERED: PNEUMOCOCCAL VACCINE 0.5 ML IMVAC ONE (10:00)
--- NOTE | 2020-07-09 14:01 | CON ---
Date of Consultation: 07/09/2020 Reason For Consultation: Hypertensive crisis and stroke. History Of Present Illness: The patient is a 65-year-old Latin-[place] male with no previous past m edical history as far as he knows. He does not take any medicine. He does not have any allergies. He came in with a pressure of 194/78, slurred speech and confusion, was found to have a subacute CVA. EKG showed LVH. Troponin is 0.1. Cholesterol is 243, LDL of 175. Chest x-ray was negative. No s ymptoms now. Review of Systems: Negative. Social History: Negative. Family History: Noncontributory. Physical Examination: General: He was pleasant. Vital Signs: Stable, afebrile. HEENT: Negative. Neck: Supple with no bruit. Chest: Clear. Cardiac: Revealed a regular rhythm and rate. No murmurs, gallops, or rubs. Abdomen: Benign. Extremities: Revealed no clubbing, cyanosis, or edema. Diagnostic Data: As stated earlier. Impression And Plan: 1.Cerebrovascular accident secondary to hypertensive crisis. 2.Dyslipidemia. 3.Elevated troponin secondary to hypertension. I think the patient needs to be on beta-rivka, sta tin, Norvasc, aspirin. We will see what the echocardiogram shows. He can go home whenever it is okay with Dr. Zacarias and I will see him in the office in a week or 2. AYAAN/FABIANA Voice ID: [id number] Report ID: [id number]
--- NOTE | 2020-07-09 17:05 | P.PN ---
Subjective Date of Service: 07/09/20 Chief Complaint: slurred speech, facial droop Patient states his slurred speech is much better. His face is mildly deviated to the left but patient states this is chronic. He has no problem with swallow. He has no limb weakness or incoordination. Physical Examination - Vital Signs Temperature: 97.1 F Blood Pressure: 180/77 Pulse: 60 Respirations: 18 Pulse Ox (%): 95 - Physical Exam General: Alert, In no apparent distress, Oriented x3 HEENT: PERRLA, Mucous membr. moist/pink, EOMI, Sclerae nonicteric Neck: Supple, 2+ carotid pulse no bruit, JVD not distended Respiratory: Clear to auscultation bilaterally, Normal air movement Cardiovascular: No edema, Regular rate/rhythm, Normal S1 S2, No murmurs Gastrointestinal: Normal bowel sounds, Soft and benign, Non-distended, No tenderness Musculoskeletal: No swelling, No tenderness Integumentary: No rashes, No erythema Neurological: Normal speech, Normal strength at 5/5 x4 extr, Other (Mild right facial droop) - Studies Laboratory Data (last 24 hrs) 07/08/20 18:17: PT 11.1, INR 0.97, APTT 32.5 07/08/20 18:17: WBC 9.00, Hgb 13.4 L, Hct 40.0, Plt Count 301 07/08/20 18:17: Sodium 140, Potassium 4.0, BUN 16, Creatinine 0.80, Glucose 103 Assessment And Plan - Current Problems (Diagnosis) (1) Acute CVA (cerebrovascular accident) Current Visit: Yes Status: Acute (2) LVH (left ventricular hypertrophy) Current Visit: Yes Status: Acute (3) Abnormal EKG Current Visit: Yes Status: Acute (4) Elevated troponin Current Visit: Yes Status: Acute (5) Hypertension Current Visit: Yes Status: Acute Qualifiers: Hypertension type: essential hypertension Qualified Code(s): I10 - Essential (primary) hypertension - Plan Patient neurologic symptoms have improved. His speech is better. Blood pressure is elevated. Troponin trended flat. Patient seen by cardiology. Elevated troponin deemed secondary to demand ischemia. Abnormal EKG with T-wave inversion deemed to be secondary to LVH with LV strain. Echocardiogram done. Result is pending. MRI of the brain confirmed subacute CVA in the left basal ganglia. MRA of head and neck shows no significant vascular occlusion or stenosis. Continue aspirin and lipitor. Add Plavix Start folic acid. Patient also started amlodipine for severely elevated systolic blood pressure. Hydralazine IV p.r.n. for BP spikes. Neurology Consult.
[2020-07-09] MEDS: ENOXAPARIN 40 MG/0.4 ML SQ SCH (20:42)
[2020-07-09] MEDS: ATORVASTATIN 20 MG TAB PO SCH (20:42)
--- NOTE | 2020-07-10 08:14 | ECHO ---
HEIGHT: 5 ft 5 in WEIGHT: 180 lb 0 oz DATE OF STUDY: 07/09/[address]: Bashir George 2-DIMENSIONAL: YES M.MODE: YES DOPPLER: YES COLOR FLOW: YE TDS: S PORTABLE: DEFINITY: BUBBLE STUDY: DIAGNOSIS: LEFT VENTRICULAR HYPERTROPHY CARDIAC HISTORY: CATHERIZATION: NO SURGERY: NO PROSTHETIC VALVE: NO PACEMAKER: NO MEASUREMENTS (cm) DIASTOLIC (NORMALS) SYSTOLIC (NORMALS) IVSd 1.0 (0.6-1.2) LA Diam 2.5 (1.9-4.0) LVEF 55-60% LVIDd 4.0 (3.5-5.7) LVIDs 2.4 (2.0-3.5) %FS 41% LVPWd 1.1 (0.6-1.2) Ao Diam 2.3 (2.0-3.7) 2 DIMENSIONAL ASSESSMENT: RIGHT ATRIUM: NORMAL LEFT ATRIUM: NORMAL RIGHT VENTRICLE: NORMAL LEFT VENTRICLE: NORMAL TRICUSPID VALVE: NORMAL MITRAL VALVE: MILD MITRAL REGURGITATION PULMONIC VALVE: NORMAL AORTIC VALVE: NORMAL PERICARDIAL EFFUSION: NONE AORTIC ROOT: NORMAL LEFT VENTRICULAR WALL MOTION: NORMAL DOPPLER/COLOR FLOW: MILD MITRAL REGURGITATION COMMENTS: NORMAL LEFT VENTRICULAR EJECTION FRACTION 55-60%. NORMAL WALL MOTION. MILD MITRAL REGURGITATION. TECHNOLOGIST: WHITNEY LOZA
[2020-07-10] MEDS ORDERED: AMLODIPINE 10 MG TAB PO SCH (09:00)
[2020-07-10] MEDS: FOLIC ACID 1 MG TABLET PO SCH (09:00)
[2020-07-10] MEDS: ASPIRIN EC 81 MG TAB PO SCH (09:00)
[2020-07-10 10:45] VITALS: O2SAT 96
--- NOTE | 2020-07-10 10:55 | P.DS ---
Admission Date: 07/08/20 Discharge Date: 07/10/20 Disposition: ROUTINE DISCHARGE Discharge Condition: FAIR Reason for Admission: slurred speech, facial droop Consultations: Cardiology-Dr. Vyas Neurology-Dr. Barrios. - Problems (1) Acute CVA (cerebrovascular accident) Current Visit: Yes Status: Acute (2) LVH (left ventricular hypertrophy) Current Visit: Yes Status: Acute (3) Abnormal EKG Current Visit: Yes Status: Acute (4) Elevated troponin Current Visit: Yes Status: Acute (5) Hypertension Current Visit: Yes Status: Acute Qualifiers: Hypertension type: essential hypertension Qualified Code(s): I10 - Essential (primary) hypertension Brief History of Present Illness: 65 year old man presented to the emergency department with a complaint onset of slurred speech and right sided facial droop of 4 days duration. He denied any limb weakness or gait abnormalities. He also denied any vision changes or headache. He smokes 1/2ppd. CT Head showed suspected subacute nonhemorrhagic inf arction in the posterior left basal ganglia and posterior limb internal capsule regions. No hemorrhage, Initial troponin 0.1. EKG showed diffuse T-wave inversions. Hypertensive to SBP of 180s. Denied chest pain. Patient admitted for further management. Hospital Course: Patient admitted to the medical floor and started on aspirin and Lipitor. He was seen by cardiology, elevated troponin considered secondary to demand ischemia. Cardiology attributed abnormal EKG to LVH from longstanding hypertension. No ACS. His slurred speech improved during the hospital stay. I noticed mild right facial droop but patient stated this is chronic. He had no other neurologic symptoms. He had no trouble swallowing and no limb weakness or incoordination. Patient seen by neurology who recommended aspirin, Plavix, Lipitor and folic acid. He was also started on amlodipine for severely elevated blood pressure. SBP is better with the amlodipine. Patient advised to quit smo kendra. Also discussed low-fat low-cholesterol diet and compliance with medications. He is deemed clinically stable for discharge. He is informed to follow with Dr. Barrios within 1 month. Vital Signs/Physical Exam: Temp Pulse Resp BP Pulse Ox 97.1 F 61 16 170/78 H 97 07/10/20 08:00 07/10/20 09:03 07/10/20 08:00 07/10/20 09:03 07/10/20 08:00 General: Alert, In no apparent distress, Oriented x3 HEENT: PERRLA, EOMI, Sclerae nonicteric Respiratory: Clear to auscultation bilaterally, Normal air movement Cardiovascular: No edema, Regular rate/rhythm, Normal S1 S2 Gastrointestinal: Normal bowel sounds, Soft and benign, Non-distended, No tenderness Musculoskeletal: No swelling, No tenderness Integumentary: No rashes Neurological: Normal strength at 5/5 x4 extr, Cranial nerves 3-12 intact Laboratory Data at Discharge: WBC 8.20 K/uL (4.3-10.9) 07/09/20 06:10 Hgb 13.7 g/dL (13.6-17.9) 07/09/20 06:10 Hct 40.5 % (39.6-49.0) 07/09/20 06:10 Plt Count 290 K/uL (152-406) 07/09/20 06:10 PT 11.1 SECONDS (9.5-12.5) 07/08/20 18:17 INR 0.97 07/08/20 18:17 APTT 32.5 SECONDS (24.3-36.9) 07/08/20 18:17 Sodium 140 mmol/L (136-145) 07/09/20 06:10 Potassium 4.0 mmol/L (3.5-5.1) 07/09/20 06:10 BUN 13 mg/dL (7-18) 07/09/20 06:10 Creatinine 0.80 mg/dL (0.55-1.3) 07/09/20 06:10 Glucose 109 mg/dL (74-106) H 07/09/20 06:10 Phosphorus 3.1 mg/dL (2.5-4.9) 07/09/20 06:10 Magnesium 2.3 mg/dL (1.8-2.4) 07/09/20 06:10 Total Bilirubin 0.3 mg/dL (0.2-1.0) 07/09/20 06:10 AST 14 U/L (15-37) L 07/09/20 06:10 ALT 30 U/L (12-78) 07/09/20 06:10 Alkaline Phosphatase 74 U/L (45-117) 07/09/20 06:10 Troponin I 0.10 ng/mL (0.0-0.045) H 07/09/20 14:37 Triglycerides 188 mg/dL (<150) H 07/09/20 06:10 Cholesterol 243 mg/dL (<200) H 07/09/20 06:10 HDL Cholesterol 30 mg/dL (40-60) L 07/09/20 06:10 Cholesterol/HDL Ratio 8.10 07/09/20 06:10 Home Medications: Amlodipine [Norvasc*] 10 mg PO DAILY #30 tab 07/10/20 Aspirin [Aspirin EC 81 MG] 81 mg PO DAILY #30 tablet. 07/10/20 Atorvastatin Calcium [Lipitor] 40 mg PO BEDTIME #30 tab 07/10/20 Clopidogrel Bisulfate [Plavix] 75 mg PO DAILY #30 tablet 07/10/20 Folic Acid 1 mg PO DAILY #30 tablet 07/10/20 New Medications: Aspirin [Aspirin EC 81 MG] 81 mg PO DAILY #30 tablet. Folic Acid 1 mg PO DAILY #30 tablet Atorvastatin Calcium [Lipitor] 40 mg PO BEDTIME #30 tab Amlodipine [Norvasc*] 10 mg PO DAILY #30 tab Clopidogrel Bisulfate [Plavix] 75 mg PO DAILY #30 tablet Diet: AHA Activity: Ad olga Followup: Baldomero Barrios MD [ASSOCIATE-ACTIVE - CAN ADMIT] - Time spent managing pt's care (in minutes): 37
[2020-07-10 12:47] VITALS: BP 161/68; TEMP 97.3
--- NOTE | 2020-07-10 22:19 | CON ---
Reason For Consultation: Consultation called because of stroke. History Of Present Illness: Mr. Rogers is a 65-year-old right-handed patient, who has hist ory of smoking and reports heavy use of Coke at least a liter a day, this is Coke drink; hypertension ; and poor compliance with medications; comes to [facility] after onset of slurred speech an d right facial drooping on Monday. He came in about 3 days after the onset of symptoms. He was out of the window for any tissue plasminogen activator. His head CT scan showed a subacute ischemic stro ke in the posterior left basal ganglia and posterior limb of internal capsule. Brain MRI done on the showed the stroke again to be nonhemorrhagic in the globus pallidus and lentiform nucleus with partial involvement of the posterior limb of internal capsule, and there was also extension into the deep periventricular white matter in the left frontal lobe. Despite the significant extent of the pa tient's imaging findings, his deficits were very minimal compared to what will be actually expected f or the location of his stroke. He actually has recovered significantly and has no significant slurre d speech or facial drooping. His additional stroke workup included MRI of the head, which showed no significant abnormalities. His MRA of the neck identified no significant obstructions or abnormaliti es there. Echocardiogram showed 55% to 60% ejection fraction with no abnormalities. His blood work is complete blood count with differential was unremarkable, coagulation panel normal, chemistries ess entially normal, chloride 109, glucose 109, otherwise normal. Total cholesterol elevated to 243, LDL cholesterol elevated to 175, HDL cholesterol low at 30, and triglycerides of 288. Liver function st udies are normal. COVID-19 negative. The patient was not taking aspirin or any antiplatelet medicat ions and was not regularly taking his medications. Past Medical History: Hypertension. Family History: Brother with heart disease. Mother with cancer. Past Surgical History: No surgical history. Allergies: NO KNOWN DRUG ALLERGIES. Home Medications: None. Review of Systems: The patient's said he works very hard, does not sleep well, and drinks lots of Coke, but does no t have any complaints. Otherwise, no gastrointestinal, genitourinary, dermatological, or other compl aints in review of systems. Physical Examination: Vital Signs: Blood pressure 161/68, pulse 82, respiratory rate 16, temperature 97.3, and oxygen satu ration 95% on room air. Weight 180 pounds, height 5 feet 5 inches, BMI 30. General: Mr. Rogers is in bed. He actually was up and ambulated. HEENT: He is normocephalic, atraumatic. Sclerae anicteric. Oropharynx pink and moist. Neck: Supple. Chest: Clear. Heart: Regular. Extremities: No edema or cyanosis. Neurological: He is alert and oriented to situation, place, time. Follows commands appropriately. He has no cranial nerves deficits despite his findings of stroke. He has normal speech without any d ifficulty of labial, lingual, or guttural sounds. Motor examination is 5/5 proximally and distally i n the upper and lower extremities. Coordination intact in the upper and lower extremities. Gait is actually normal. Able to do tandem gait and walk on his heels without any difficulty. Reflexes are 1 to 2+, symmetric in upper and lower extremities. Assessment: Mr. Rogers is a 65-year-old patient with smoking, excessive Coke drinking, hypertension , who was not on any antiplatelet medication when he has had stroke with actually good clinical resol ution. Plan: 1.He was given aspirin and Plavix daily, folic acid 1 mg daily, Lipitor 40 mg at bedtime, Norvasc 10 mg daily. He was told the importance of paying attention to any clinical deficit and immediately ca lling 1 to come back to the hospital for treatment if his symptoms either worsen or new symptoms oc cur. 2.He may be discharged home and he was given a note to return to work on Monday as he actually insis miquel on that, but the recommendation was for him to be out for at least a week. 3.He will call Dr. Barrios's office on Monday for an appointment in 1 month. EVERETT/FABIANA Voice ID: [id number] Report ID: [id number]
== END 2020-07-10 15:45 | disposition home or self-care (01) | DRG 65 ==
LOC: ER 17:25 → ERHOLD 20:59 → 4TH 07-09 03:36
PROVIDERS: ADMIT Internal Medicine; ATTEND Internal Medicine
DX: I63.9 Cerebral infarction, unspecified (principal); I16.9 Hypertensive crisis, unspecified; I24.8 Other forms of acute ischemic heart disease; I51.7 Cardiomegaly; E78.5 Hyperlipidemia, unspecified; F17.210 Nicotine dependence, cigarettes, uncomplicated; I10 Essential (primary) hypertension; R29.701 NIHSS score 1; R47.81 Slurred speech; R29.810 Facial weakness; R94.31 Abnormal electrocardiogram [ECG] [EKG]; R77.8 Other specified abnormalities of plasma proteins; Z79.82 Long term (current) use of aspirin; Z79.02 Long term (current) use of antithrombotics/antiplatelets; Z79.899 Other long term (current) drug therapy; Z20.822 Contact with and (suspected) exposure to COVID-19
CPT/HCPCS: 36415; 70450; 70544; 70549; 70553; 71045; 80048; 80053; 80061; 82947; 83036; 83735; 83880; 84100; 84439; 84443; 84484; 85025; 85610; 85730; 92507; 92523; 93005; 93306; 94760; 96365; 99285; A9577; J1650; U0003

== ENCOUNTER 2020-12-17 07:12 | Emergency (ER) | payer BC ==
[2020-12-17 07:32] LABS: Urine Blood 1+ (Negative); Urine Glucose Negative (Negative); Urine Protein 1+ (Negative); Urine Specific Gravity 1.015 (1.005-1.030); Urine pH 5.5 (5.0-7.0)
--- NOTE | 2020-12-17 08:08 | EDPHYS ---
Physician Documentation [facility] Name: Emile Rogers Age: 65 yrs Sex: Male : 1955 Arrival Date: 12/17/2020 Time: 07:16 Bed 7 Private MD: ED Physician Harrison Amin HPI: 12/17 07:46 This 65 yrs old Male presents to ER via Ambulatory with complaints of UTI. rn 07:46 The patient presents with urinary symptoms, dysuria, urinary frequency. Onset: The rn symptoms/episode began/occurred yesterday. Modifying factors: The symptoms are alleviated by nothing, the symptoms are aggravated by urinating. Associated signs and symptoms: Pertinent positives: dysuria, Pertinent negatives: fever. Severity of symptoms: At their worst the symptoms were mild, in the emergency department the symptoms are unchanged. The patient has experienced a previous episode. The patient has not recently seen a physician. Patient reports 1 to 2 days of dysuria and increased urinary frequency. Denies fever. Similar episode in the past with UTI. Reports lower back pain. No chills. No trauma. No hematuria.. Historical: - Allergies: 07:27 No Known Allergies; ap3 - Home Meds: 07:27 None [Active]; ap3 - PMHx: 07:27 None; ap3 - Immunization history:: Adult Immunizations not up to date, Client reports having NOT received the Covid vaccine. - Social history:: Smoking status: Patient reports the use of cigarette tobacco products, smokes one-half pack cigarettes per day, Patient/guardian denies using alcohol, street drugs. - Family history:: not pertinent. - Hospitalizations: : No recent hospitalization is reported. ROS: 07:46 Constitutional: Negative for fever, chills, and weight loss, Eyes: Negative for injury, rn pain, redness, and discharge, Neck: Negative for injury, pain, and swelling, Cardiovascular: Negative for chest pain, palpitations, and edema, Respiratory: Negative for shortness of breath, cough, wheezing, and pleuritic chest pain, Abdomen/GI: Negative for abdominal pain, nausea, vomiting, diarrhea, and constipation, Back: Negative for injury : Positive for dysuria and increased frequency. MS/Extremity: Negative for injury and deformity, Skin: Negative for injury, rash, and discoloration, Neuro: Negative for headache, weakness, numbness, tingling, and seizure. Exam: 07:46 Constitutional: This is a well developed, well nourished patient who is awake, alert, rn and in no acute distress. Head/Face: Normocephalic, atraumatic. Cardiovascular: Regular rate and rhythm . No pulse deficits. Respiratory: No increased work of breathing, no retractions or nasal flaring. Abdomen/GI: Soft, non-tender Back: No spinal tenderness. No costovertebral tenderness. Full range of motion. Skin: Warm, dry MS/ Extremity: Pulses equal, no cyanosis. Neuro: Awake and alert, GCS 15, oriented to person, place, time, and situation. Cranial nerves II-XII grossly intact. Motor strength 5/5 in all extremities. Sensory grossly intact. Cerebellar exam normal. Normal gait. Vital Signs: 07:25 BP 174 / 82; Pulse 93; Resp 18; Pulse Ox 96% on R/A; Weight 81.65 kg; Height 5 ft. 6 ap3 in. (167.64 cm); 08:03 BP 141 / 63; Pulse Ox 98% on R/A; ap3 07:25 Body Mass Index 29.05 (81.65 kg, 167.64 cm) ap3 MDM: 07:18 Patient medically screened. rn 08:06 Differential diagnosis: UTI, prostatitis, urethritis. Data reviewed: vital signs, rn nurses notes, lab test result(s), and as a result, I will discharge patient. Counseling: I had a detailed discussion with the patient and/or guardian regarding: the historical points, exam findings, and any diagnostic results supporting the discharge/admit diagnosis, lab results, the need for outpatient follow up, to return to the emergency department if symptoms worsen or persist or if there are any questions or concerns that arise at home. Special discussion: I discussed with the patient/guardian in detail that at this point there is no indication for admission to the hospital. It is understood, however, that if the symptoms persist or worsen the patient needs to return immediately for re-evaluation. 12/17 07:23 Order name: Urine Culture rn 12/17 07:23 Order name: Urine Microscopic Only rn 12/17 07:23 Order name: Urine Dipstick-Ancillary (obtain specimen); Complete Time: :30 rn 12/17 07:32 Order name: Urine Dipstick-Ancillary EDMS Administered Medications: 08:02 Drug: Rocephin (cefTRIAXone) 1 grams Route: IM; Site: right gluteus; ap3 08:14 Follow up: Response: No adverse reaction ap3 Disposition Summary: 12/17/20 08:07 Discharge Ordered Location: Home rn Problem: new rn Symptoms: have improved rn Condition: Stable rn Diagnosis - UTI/ Urinary tract infection, site not specified rn Followup: rn - With: Private Physician - When: As needed - Reason: Recheck today's complaints, Re-evaluation by your physician Discharge Instructions: - Discharge Summary Sheet rn - Dysuria rn - Urinary Tract Infection, Adult rn Forms: - Medication Reconciliation Form rn - Thank You Letter rn - Antibiotic deputy commonwealth's attorney - Prescription Opioid Use rn - Family Work Release ap3 Prescriptions: - cefpodoxime 100 mg Oral Tablet - take 2 tablets by ORAL route every 12 hours for 10 days take with food; 40 rn tablet; Refills: 0, Product Selection Permitted Signatures: Dispatcher [employer] EDMS Harrison Amin MD MD rn Prokisch, Amanda, RN RN ap3
--- NOTE | 2020-12-17 08:08 | ER ---
Nurse's Notes [facility] Name: Emile Rogers Age: 65 yrs Sex: Male : 1955 Arrival Date: 12/17/2020 Time: 07:16 Bed 7 Private MD: Diagnosis: UTI/ Urinary tract infection, site not specified Presentation: 12/17 07:25 Chief complaint: Patient states: he has low back pain, and pain with urination. ap3 Coronavirus screen: At this time, the client does not indicate any symptoms associated with coronavirus-19. Ebola Screen: No symptoms or risks identified at this time. Initial Sepsis Screen: Does the patient meet any 2 criteria? No. Patient's initial sepsis screen is negative. Does the patient have a suspected source of infection? Yes:. Risk Assessment: Do you want to hurt yourself or someone else? Patient reports no desire to harm self or others. Onset of symptoms was December 14, 2020. 07:25 Method Of Arrival: Ambulatory ap3 07:25 Acuity: ASHLY 4 ap3 Triage Assessment: 07:28 General: Appears in no apparent distress. Behavior is calm, cooperative. Pain: ap3 Complains of pain in low back area Aggravated by urination. Neuro: Level of Consciousness is awake, alert, obeys commands, Oriented to person, place, time, situation, Appropriate for age Moves all extremities. Gait is steady, Speech is normal. Cardiovascular: Patient's skin is warm and dry. Respiratory: Airway is patent Respiratory effort is even, unlabored, Respiratory pattern is regular, symmetrical. GI: No signs and/or symptoms were reported involving the gastrointestinal system. : Reports burning with urination, pain in lower back with urination. Musculoskeletal: Capillary refill < 3 seconds. Historical: - Allergies: 07:27 No Known Allergies; ap3 - Home Meds: 07:27 None [Active]; ap3 - PMHx: 07:27 None; ap3 - Immunization history:: Adult Immunizations not up to date, Client reports having NOT received the Covid vaccine. - Social history:: Smoking status: Patient reports the use of cigarette tobacco products, smokes one-half pack cigarettes per day, Patient/guardian denies using alcohol, street drugs. - Family history:: not pertinent. - Hospitalizations: : No recent hospitalization is reported. Screenin:29 Abuse screen: Denies threats or abuse. Nutritional screening: No deficits noted. ap3 Tuberculosis screening: No symptoms or risk factors identified. Fall Risk None identified. Assessment: 07:29 Reassessment: patient provided with urine specimen cup and education on proper urine ap3 collection. patient verbalized understanding. 07:30 Neuro: Level of Consciousness is awake, alert, obeys commands. ap3 08:03 Reassessment: Patient and/or family updated on plan of care and expected duration. Pain ap3 level reassessed. Patient is alert, oriented x 3, equal unlabored respirations, skin warm/dry/pink. Vital Signs: 07:25 BP 174 / 82; Pulse 93; Resp 18; Pulse Ox 96% on R/A; Weight 81.65 kg; Height 5 ft. 6 ap3 in. (167.64 cm); 08:03 BP 141 / 63; Pulse Ox 98% on R/A; ap3 07:25 Body Mass Index 29.05 (81.65 kg, 167.64 cm) ap3 ED Course: 07:16 Patient arrived in ED. mr 07:18 Harrison Amin MD is Attending Physician. rn 07:21 Arm band placed on Patient placed in an exam room, on a stretcher. ll1 07:25 Lesley Rao, YESSICA is Primary Nurse. ap3 07:27 Triage completed. ap3 07:29 Patient has correct armband on for positive identification. Pulse ox on. NIBP on. Door ap3 closed. Noise minimized. 08:14 No provider procedures requiring assistance completed. Patient did not have IV access ap3 during this emergency room visit. Administered Medications: 08:02 Drug: Rocephin (cefTRIAXone) 1 grams Route: IM; Site: right gluteus; ap3 08:14 Follow up: Response: No adverse reaction ap3 Outcome: 08:07 Discharge ordered by . rn 08:14 Discharged to home ambulatory. ap3 08:14 Condition: good 08:14 Discharge instructions given to patient, family, Instructed on discharge instructions, follow up and referral plans. medication usage, Demonstrated understanding of instructions, follow-up care, medications, Prescriptions given X 1. 08:17 Patient left the ED. ap3 Signatures: Wilma Larson mr Harrison Amin MD MD rn Prokisch, Amanda, RN RN ap3 Raj Allred, RN RN ll1
[2020-12-17] MEDS ORDERED: WATER FOR INJ,STERILE 10 ML ONE (08:21)
[2020-12-17] MEDS ORDERED: CEFTRIAXONE 1000 MG/VIAL ONE (08:21)
[2020-12-17 08:23] VITALS: BP 141/63; O2SAT 98
[2020-12-17 08:29] LABS: Urine Bacteria 20-50 /HPF (NONE SEEN); Urine Mucus SLIGHT /HPF (NONE SEEN); Urine RBC <5 /HPF (NONE SEEN)
== END 2020-12-17 08:17 | disposition home or self-care (01) ==
LOC: ER 07:12
DX: N39.0 Urinary tract infection, site not specified (principal); F17.210 Nicotine dependence, cigarettes, uncomplicated
CPT/HCPCS: 81003; 81015; 87077; 87086; 87088; 87186; 96372; 99283